=== PATIENT | female | born 1960 | race Caucasian/White ===

== ENCOUNTER 2020-04-28 10:08 | Emergency (ER) | payer MEDICARE, SELFPAY ==
--- NOTE | ~2020-04-28 | XR_ITS ---
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 There is a residual surgical pin in the ca lcaneus. There is chronic fracture deformity of the calcaneus. Ankle mortise intact. No acute fractur e or traumatic malalignment. There is a degenerative calcaneal enthesophyte. There are degenerative c hanges of the subtalar joint. Impression: 1: No acute abnormality of the right ankle. Reviewed, dictated and finalized at location B. Impression: 1: No acute abnormality of the right ankle.
[2020-04-28 10:30] VITALS: BP 105/64; PULSE 72; RESP 18; TEMP 36.6; O2SAT 98
--- NOTE | 2020-04-28 11:07 | ED.LOWEXIN ---
HPI - Extremity Injury (Lower) General Chief Complaint: Extremity Injury, Lower Stated Complaint: injury rt ankle Time Seen by Provider: 04/28/20 10:53 Source: patient Mode of arrival: wheelchair Limitations: no limitations History of Present Illness HPI Narrative: This is a 59-year-old female that presents the emergency department for right ankle injury last night. Reports she was getting off of a lawnmower and felt a pop in her right ankle. Reports since she has had pain and swelling of the lateral ankle. Denies other injuries, decreased range of motion, or numbness. Related Data Home Medications Medication Instructions Recorded Confirmed aspirin 81 mg tablet,delayed 81 mg PO DAILY 02/17/20 release cholecalciferol (vitamin D3) 125 125 mcg PO .QOD cap 02/17/20 mcg (5,000 unit) capsule Allergies Allergy/AdvReac Type Severity Reaction Status Date / Time niacin Allergy Unknown Itching Verified 04/28/20 10:37 Iodinated Contrast Media AdvReac Mild Rash Verified 04/28/20 10:37 APPLES Allergy ANAPHYLAXIS Uncoded 04/28/20 10:37 /HIVES CHERRIES Allergy ANAPHYLAXIS/ Uncoded 04/28/20 10:37 HIVES Review of Systems Review of Systems: Narrative: CONSTITUTIONAL: Denies fever MUSCULOSKELETAL: Reports joint pain, or myalgia. NEUROLOGIC: Denies new numbness, or weakness. All systems reviewed & are unremarkable except as noted in HPI and below PMFSH Past Medical History Medical History (Updated 04/28/20 @ 11:11 by Divya Aburto PA-C) Acute upper back pain Adrenal mass Syncope Surgical History Surgical History (System 01/09/20 @ 13:35 by Joan Hoover) H/O colonoscopy with polypectomy H/O: section 1986, 1990 History of foot surgery 2003 History of hand surgery 1985 Social History Social History (System 01/09/20 @ 13:35 by Joan Hoover) Smoking status: Current every day smoker Alcohol intake: current Additional living arrangements comments: Additional occupation/education comments: N/A Gender identity (if verbalized by the patient): Female Exam Narrative: Exam Narrative: GENERAL: Well-appearing, well-nourished, and in no acute distress. HEAD: Normocephalic, atraumatic. EYES: EOMI. EXTREMITIES: Normal range of motion. Mild edema with tenderness to palpation of the right lateral malleoli. Normal DP pulses SKIN: Warm, dry, no rash. NEURO: No focal deficits. Alert and oriented x3. PSYCH: Normal mood and affect Course Vital Signs Vital signs: Vital Signs Temperature 97.9 F 04/28/20 10:30 Pulse Rate 72 04/28/20 10:30 Respiratory Rate 18 04/28/20 10:30 Blood Pressure 105/64 04/28/20 10:30 Pulse Oximetry 98 04/28/20 10:30 Temperature 97.9 F 04/28/20 10:30 Pulse Rate 72 04/28/20 10:30 Respiratory Rate 18 04/28/20 10:30 Blood Pressure 105/64 04/28/20 10:30 Pulse Oximetry 98 04/28/20 10:30 MDM - Extremity Injury (Lower) MDM Narrative Medical decision making narrative: Patient presents the emergency department for right ankle pain after an injury last night. Right ankle x-rays without acute findings. Patient given Bam wrap and crutches. Instructed on care of ankle sprain. Patient is to follow-up with primary care doctor. She was given warnings to return to the ER Imaging Data Radiologist's impression: ITS Impressions Ankle X-Ray 04/28/20 10:58 Impression: 1: No acute abnormality of the right ankle. Critical Care Time Critical Care Time Critical Care Time: No Discharge Plan Discharge Clinical Impression: Right ankle sprain Qualifiers: Encounter type: initial encounter Involved ligament of ankle: unspecified ligament Qualified Code(s): S93.401A - Sprain of unspecified ligament of right ankle, initial encounter Patient Disposition: Home, Self-Care Condition: Stable Instructions: Ankle Sprain (ED) Additional Instructions: Return to the emergency department if y
== END 2020-04-28 11:27 | disposition home or self-care (01) ==
PROVIDERS: Emergency Provider Emergency Medicine; PCP Family Medicine
DX: S93.401A Sprain of unspecified ligament of right ankle, initial encounter (principal); X50.0XXA Overexertion from strenuous movement or load, initial encounter
CPT/HCPCS: 73610; 99283; A9270